=== PATIENT | male | born 1950 | race Native Hawaiian/Other Pacific Islander ===

== ENCOUNTER 2017-10-21 08:27 | Outpatient (CLI) | payer OTHER ==
[~2017-10-21 08:27] MED LIST: CIPRO500 MG PO; COLC0.6T6 PO; IBUP800T30 PO; LISI20TA31 PO; PANT40TA PO; TRAM50TA PO
== END 2017-10-21 19:25 | disposition home or self-care (01) ==
LOC: RESP 08:27
DX: I10 Essential (primary) hypertension (principal); R01.1 Cardiac murmur, unspecified
CPT/HCPCS: 93306

== ENCOUNTER 2019-04-14 10:05 | Outpatient (CLI) | payer OTHER ==
[2019-04-14 10:44] LABS: PLATELET COUNT 187 K/uL (142-355)
[2019-04-14 11:05] LABS: POTASSIUM 4.4 mmol/L (3.6-5.2)
== END 2019-04-14 19:50 | disposition home or self-care (01) ==
LOC: LAB 10:05
PROVIDERS: Nurse Practitioner Family
DX: Z00.00 Encounter for general adult medical examination without abnormal findings (principal); K21.9 Gastro-esophageal reflux disease without esophagitis; I10 Essential (primary) hypertension; M10.9 Gout, unspecified; Z79.899 Other long term (current) drug therapy; E66.8 Other obesity; M25.50 Pain in unspecified joint; I49.8 Other specified cardiac arrhythmias
CPT/HCPCS: 36415; 80053; 80061; 83036; 84439; 84443; 85027

== ENCOUNTER 2019-12-05 20:20 | Observation (INO) | payer OTHER ==
[2019-12-05] VITALS (8 sets, daily range): BP systolic 148–177; BP diastolic 62–81; TEMP 98.9
[~2019-12-05] VITALS: Ht 177.8 cm; Wt 101.3 kg
[2019-12-05 21:12] LABS: PLATELET COUNT 156 K/uL (142-355)
[2019-12-05 21:19] LABS: POTASSIUM 3.7 mmol/L (3.6-5.2)
[2019-12-06] VITALS (8 sets, daily range): BP systolic 118–156; BP diastolic 59–74; TEMP 98.1–98.5; Ht 177.8 cm; Wt 101.3 kg
[2019-12-06 07:10] LABS: PLATELET COUNT 168 K/uL (142-355)
[2019-12-06 09:11] LABS: PARTIAL THROMBOPLASTIN TIME 25.4 SECONDS (24.5-33.6)
== END 2019-12-06 11:45 | disposition short-term general hospital (02) ==
LOC: ED 20:20 → MED/SURG 12-06 01:45
PROVIDERS: Emergency Medicine Emergency Medical Services; ADMIT Internal Medicine Endocrinology, Diabetes & Metabolism
DX: I21.4 Non-ST elevation (NSTEMI) myocardial infarction (principal); I10 Essential (primary) hypertension; E78.49 Other hyperlipidemia; Z86.73 Personal history of transient ischemic attack (TIA), and cerebral infarction without residual deficits
CPT/HCPCS: 36415; 80053; 81000; 82550; 84484; 85027; 85610; 85730; 93005; 99220; 99283; G0378; J1644

== ENCOUNTER 2020-02-07 09:09 | Outpatient (CLI) | payer OTHER | END 2020-02-07 19:04 | disposition home or self-care (01) | LOC: MRI 09:09 | DX: N40.0 Benign prostatic hyperplasia without lower urinary tract symptoms (principal); R91.1 Solitary pulmonary nodule; K86.89 Other specified diseases of pancreas | CPT/HCPCS: 36415; 82565; 84520; A9576 ==

== ENCOUNTER 2020-02-12 08:18 | Outpatient (CLI) | payer OTHER | END 2020-02-12 23:38 | disposition home or self-care (01) | LOC: NM 08:18 | DX: R91.1 Solitary pulmonary nodule (principal); K86.89 Other specified diseases of pancreas; N40.0 Benign prostatic hyperplasia without lower urinary tract symptoms | CPT/HCPCS: A9561 ==

== ENCOUNTER 2020-03-13 07:46 | Outpatient (CLI) | payer OTHER ==
[2020-03-13 08:13] LABS: PLATELET COUNT 149 K/uL (142-355)
[2020-03-13 08:22] LABS: POTASSIUM 3.7 mmol/L (3.6-5.2)
== END 2020-03-13 21:30 | disposition home or self-care (01) ==
LOC: LABW 07:46
PROVIDERS: Internal Medicine Gastroenterology
DX: K86.89 Other specified diseases of pancreas (principal); R93.5 Abnormal findings on diagnostic imaging of other abdominal regions, including retroperitoneum
CPT/HCPCS: 36415; 80053; 83690; 85027; 86316

== ENCOUNTER 2020-03-15 10:37 | Outpatient (CLI) | payer OTHER | END 2020-03-15 19:10 | disposition home or self-care (01) | LOC: LAB 10:37 | DX: K86.89 Other specified diseases of pancreas (principal); R93.5 Abnormal findings on diagnostic imaging of other abdominal regions, including retroperitoneum | CPT/HCPCS: 86316 ==

== ENCOUNTER 2020-05-24 11:55 | Outpatient (CLI) | payer OTHER | END 2020-05-24 23:59 | disposition home or self-care (01) | LOC: LAB 11:55 | PROVIDERS: ATTEND Nurse Practitioner Family | DX: Z20.828 Contact with and (suspected) exposure to other viral communicable diseases (principal) ==

== ENCOUNTER 2020-10-04 06:08 | Emergency (ER) | payer OTHER ==
[~2020-10-04] VITALS: Ht 177.8 cm; Wt 108.9 kg
[2020-10-04 07:50] VITALS: BP 142/70; TEMP 98.6
== END 2020-10-04 07:50 | disposition home or self-care (01) ==
LOC: ED 06:08
PROC: 2W3MX1Z Immobilization of Left Lower Extremity using Splint (ICD-10-PCS; principal; 2020-10-04)
DX: M25.562 Pain in left knee (principal); W01.198A Fall on same level from slipping, tripping and stumbling with subsequent striking against other object, initial encounter; Y92.89 Other specified places as the place of occurrence of the external cause
CPT/HCPCS: 96372; 99283; J1885; J2930

== ENCOUNTER 2021-03-05 08:44 | Outpatient (CLI) | payer OTHER | END 2021-03-05 19:15 | disposition home or self-care (01) | LOC: MRI 08:44 | PROVIDERS: ATTEND Nurse Practitioner Family | DX: K86.89 Other specified diseases of pancreas (principal); R93.5 Abnormal findings on diagnostic imaging of other abdominal regions, including retroperitoneum | CPT/HCPCS: 36415; 82565; 84520; A9576 ==

== ENCOUNTER 2023-02-26 08:44 | Outpatient (CLI) | payer OTHER | END 2023-02-26 19:22 | disposition home or self-care (01) | LOC: CT 08:44 | PROVIDERS: ATTEND Orthopaedic Surgery Sports Medicine | DX: M25.512 Pain in left shoulder (principal); M25.511 Pain in right shoulder; M19.011 Primary osteoarthritis, right shoulder; M19.012 Primary osteoarthritis, left shoulder; M75.42 Impingement syndrome of left shoulder; M75.112 Incomplete rotator cuff tear or rupture of left shoulder, not specified as traumatic ==